=== PATIENT | female | born 1965 | race Caucasian/White ===

== ENCOUNTER 2021-12-24 15:15 | Emergency (ER) | payer OTHER, MEDICAID, SELFPAY ==
[2021-12-24 15:31] VITALS: BP 124/87; PULSE 73; RESP 16; TEMP 36.6; O2SAT 98; BMI 22.0
--- NOTE | 2021-12-24 15:37 | DI.US.S_ITS ---
PROCEDURE: US PERIPH VENOUS LOW EXTREM RT INDICATIONS: r groin pain TECHNIQUE: Real-time imaging, as well as color and pulse Doppler interrogation, were performed of the lower extremity deep veins from the inguinal ligament to the popliteal fossa. COMPARISON: None. FINDINGS: The common femoral, femoral and popliteal veins are normally compressible, and free of intraluminal thrombus. Color and pulse Doppler demonstrate normal phasic intraluminal flow. There is normal augmentation response to distal compression maneuver. IMPRESSION: No deep vein thrombosis of the right lower extremity. Dictated by: Sarika Schafer M.D. on 12/24/2021 at 16:18 Approved by: Sarika Schafer M.D. on 12/24/2021 at 16:19
--- NOTE | 2021-12-24 17:47 | ED.LOWEXIN ---
HPI - Extremity Injury (Lower) General Chief Complaint: Extremity Injury, Lower Stated Complaint: RIGHT SIDE GROIN PAIN THINKS BLOOD CLOT Time Seen by Provider: 12/24/21 17:45 Source: patient Mode of arrival: Ambulatory History of Present Illness HPI Narrative: 56-year-old female nonsmoker with noncontributory medical history presents with a chief complaint of pain in her right groin in the absence of any obvious or known injury. She states that for the past few days she has been having this pain that is worse with motion or palpation and improves with rest. Additionally, she is having pain in her anterior thigh when she attempts to walk or use her leg but no pain while at rest or with palpation. She denies any swelling, redness or obvious abnormal appearance to her leg. She denies any other symptoms. She is not dizzy nor weak or lightheaded and denies chest pain or shortness of breath. She has no nausea or vomiting. She denies any obvious injury or overuse. She is concerned about a blood clot. She denies any history of blood clot, known cancer, recent travel or other obvious risk Related Data Previous Rx's Medication Instructions Recorded cyclobenzaprine 10 mg tablet 10 mg PO TID PRN #14 tab 12/24/21 Allergies Allergy/AdvReac Type Severity Reaction Status Date / Time gabapentin AdvReac Mild Verified 12/24/21 15:37 Review of Systems Review of Systems Narrative: GENERAL: Denies chills, fatigue, malaise, fever, sweats. HEENT: Denies sinus pain, ear pain, sore throat, difficulty swallowing, dizziness. RESPIRATORY: See HPI CARDIOVASCULAR: Denies chest pain, palpitations, orthopnea, edema, GASTROINTESTINAL: Denies nausea, vomiting, abdominal pain, diarrhea, constipation, melena. : Denies dysuria, frequency, incontinence, hematuria, urinary retention. MUSCULOSKELETAL: See HPI SKIN: Denies rash, skin lesions, or other NEUROLOGIC: See HPI PSYCHIATRIC: No concerning psychosocial issues. 12 point review of systems is negative except for those stated above Patient History Social History Smoking Status: Never smoker Smoking Status: Never smoker alcohol intake frequency: 0-2 drinks per day Alcohol type: wine Substance Use Type: does not use Exam Narrative Exam Narrative: GENERAL: [56] year old patient appears stated age. Well-developed patient, in mild distress. HEAD: Atraumatic. Normocephalic. EYES: Pupils equal round and reactive. Extraocular motions intact. No scleral icterus. No injection or drainage. ENT: Nose without bleeding, purulent drainage. Throat without erythema, tonsillar hypertrophy or exudate. Airway patent. NECK: Trachea midline. Non tender CARDIOVASCULAR: Regular rate and rhythm without murmurs, gallops, or rubs. RESPIRATORY: Clear to auscultation. Breath sounds equal bilaterally. No wheezes, rales, or rhonchi. GASTROINTESTINAL: Abdomen soft, non-tender, nondistended. EXTREMITIES: No reproducible pain on palpation in groin or anterior thigh, no redness, swelling or other obvious external manifestation. No pain with passive range of motion, however with active flexion at the hip she exacerbates the pain that brought her in. BACK: Nontender without deformity or crepitance. No flank tenderness. NEURO: AOx3. SKIN: No rash or erythema of visible areas Initial Vital Signs Initial Vital Signs: Vital Signs Temperature 97.8 F 12/24/21 15:31 Pulse Rate 73 12/24/21 15:31 Respiratory Rate 16 12/24/21 15:31 Blood Pressure 124/87 12/24/21 15:31 Pulse Oximetry 98 12/24/21 15:31 Course Orders Ordered: ED Orders 12/24/21 15:37 US periph venous low extrem rt Stat Vital Signs Vital signs: Vital Signs - 8 hr 12/24/21 15:31 Temperature 97.8 F Pulse Rate 73 Respiratory Rate 16 Blood Pressure 124/87 Pulse Oximetry 98 MDM - Extremity Injury (Lower) Imaging Data US - DVT: Radiologist's Impression: Close Vascular Ultrasound (Signed) Sarika Schafer - 12/24/21 Launch?[address] [address] Ultrasound Report Signed Patient: Sujey Bergeron MR#: [id number] : 1965 Acct:[id number] Age/Sex: 56 / F Date of Service: 12/24/21 Loc: ED Accession Number: [id number] ?? Procedure: US periph venous low extrem rt Ordering Provider: Rochelle Lopes MD PROCEDURE:? US PERIPH VENOUS LOW EXTREM RT ? INDICATIONS:? r groin pain ? TECHNIQUE:? Real-time imaging, as well as color and pulse Doppler interrogation, were performed of the lower extremity deep veins from the inguinal ligament to the popliteal fossa.? ? COMPARISON:? None. ? FINDINGS:? The common femoral, femoral and popliteal veins are normally compressible, and free of intraluminal thrombus.? Color and pulse Doppler demonstrate normal phasic intraluminal flow.? There is normal augmentation response to distal compression maneuver. ? ? IMPRESSION:? No deep vein thrombosis of the right lower extremity. ? ? Dictated by: Sarika Schafer M.D. on 12/24/2021 at 16:18 ? ? Approved by: Sarika Schafer M.D. on 12/24/2021 at 16:19 ? MDM Narrative Medical decision making narrative: 56-year-old female otherwise healthy with very reassuring history and physical exam. Pain in the groin without an obvious or memorable injury that now involves the musculature of her anterior thigh. Her pain is significantly worse with active range of motion in almost non-existent with passive range of motion suggesting muscular injury. DVT considered but thought less likely given negative ultrasound. Infection considered but thought unlikely given lack of pain on palpation, erythema or warmth. She is given extensive return precautions and questions answered to her apparent satisfaction Discharge Plan Departure Patient Disposition: Home Clinical Impression: Quadriceps muscle strain Instructions: DI for Muscle Strain Activity Restrictions/Additional Instructions: *You have been diagnosed with [right thigh pain, likely due to muscle strain. As we discussed her history and physical exam are very reassuring and ultrasound ruled out blood clot *What to do: *Please continue to take your regular medications as directed. [ x] New medication prescriptions sent to your pharmacy: [ [facility] in [place]] [ ] New medication written as a paper prescription [ ] No new medications given *Please follow up with your primary care provider in 2-3 days, call for an appointment. Let them know you were seen in the Emergency Department and that we ask that you be seen in follow up. We will electronically transmit a record of today's note if your PCP is in our system *If you do not have a primary care provider please contact the [facility] Resource line at [phone]. They will ask some questions about your medical history and help get you set up with a doctor in the community. *Return to Emergency Department if you should have any new, worsening or concerning symptoms, such as [fever greater than 101 F, shaking chills, worsening pain, persistent vomiting or other bothersome symptoms] Prescriptions: New cyclobenzaprine 10 mg tablet 10 mg PO TID PRN (Reason: muscle spasm) Qty: 14 0RF
== END 2021-12-24 18:45 | disposition home or self-care (01) ==
PROVIDERS: Emergency Provider Emergency Medicine
DX: S76.111A Strain of right quadriceps muscle, fascia and tendon, initial encounter (principal)
CPT/HCPCS: 93971; 99283